=== PATIENT | female | born 1955 | race Caucasian/White ===

== ENCOUNTER 2025-09-16 19:18 | Outpatient (CLI) | payer MEDICARE, MEDICAID, SELFPAY | END 2025-09-16 19:19 | disposition home or self-care (01) | LOC: AMB 10-28 03:05 | PROVIDERS: Visit Provider Student in an Organized Health Care Education/Training Program | DX: M25.551 Pain in right hip (principal); M25.561 Pain in right knee | CPT/HCPCS: A0425; A0427 ==